=== PATIENT | female | born 1970 | race Caucasian/White ===

== ENCOUNTER 2023-08-06 17:49 | Emergency (ER) | payer BC ==
[~2023-08-06] VITALS: Ht 149.9 cm; Wt 43.2 kg
[2023-08-06] MEDS ORDERED: NS 1,000 ML IV ONE (18:00)
[2023-08-06] MEDS ORDERED: Acetaminophen 500 MG TAB PO ONE (18:00)
[2023-08-06] MEDS ORDERED: Morphine 4 MG/ML VIAL IV ONE (18:15)
[2023-08-06 19:16] LABS: BASO % 0.3 % (0.0-2.0); EOS # 0.2 K/mm3 (0.0-0.7); EOS % 2.1 % (0.0-4.0); GRAN # 3.7 K/mm3 (1.4-6.5); GRAN % 52.1 % (42.2-75.2); LYMPH # 2.6 K/mm3 (1.2-3.4); LYMPH % 36.3 % (20.0-51.0); MEAN CELL VOLUME 94 fl (80.0-100.0); MEAN CORPUSCULAR HEMOGLOBIN 31 pg (27-31); MEAN CORPUSCULAR HGB CONC 33 g/dl (33.0-37.0); MEAN PLATELET VOLUME 8.4 fl (7.4-10.4); MONO # 0.7 K/mm3 (0.1-0.6); MONO % 9.1 % (1.7-9.3); PLATELET COUNT 318 K/mm3 (130-400); RED BLOOD COUNT 3.89 M/mm3 (4.10-5.30); REDCELL DISTRIBUTION WIDTH-CV 12.3 % (11.5-14.5)
[2023-08-06 19:21] LABS: HEMATOCRIT 36.6 % (37.0-47.0)
[2023-08-06] MEDS ORDERED: diphenhydrAMINE 50 MG/ML 1 ML VIAL IV ONE (19:30)
[2023-08-06] MEDS ORDERED: NS 100 ML IV SCH (19:44)
[2023-08-06] MEDS ORDERED: Iohexol 300 - 100 ML VIAL IV ONE (19:44)
[2023-08-06 19:53] LABS: ALANINE AMINOTRANSFERASE 9 U/L (0-55); ALBUMIN 3.6 g/dL (3.5-5.0); ALKALINE PHOSPHATASE 78 U/L (40-150); ANION GAP 10 mmol/L (7-16); AST,SGOT 19 U/L (5-34); BILIRUBIN,TOTAL 0.2 mg/dL (0.2-1.2); BLOOD UREA NITROGEN 7 mg/dL (10-20); CALCIUM 9.2 mg/dL (8.4-10.2); CHLORIDE 107 mEq/L (98-107); CREATININE, serum 0.68 mg/dL (0.57-1.11); GLUCOSE 91 mg/dL (70-99); POTASSIUM 4.4 mEq/L (3.5-4.5); SODIUM 141 mEq/L (136-145); TOTAL PROTEIN 6.5 g/dl (6.2-8.1)
[2023-08-06 19:58] LABS: TROPONIN-I < 0.010 ng/mL (0.00-0.033)
[2023-08-06] MEDS ORDERED: dexAMETHasone 10 MG/ML VIAL IV ONE (20:45)
[2023-08-06] MEDS ORDERED: Albuterol/Ipratropium 3 MG-0.5 MG/3 ML Neb Soln IH ONE (20:45)
[2023-08-06] MEDS ORDERED: AMOXICILLIN 8751 TAB PO (21:14)
[2023-08-06] MEDS ORDERED: PREDNISONE20 MG PO (21:14)
[2023-08-06] MEDS ORDERED: cefTRIAXone 1 G in Water For Injection,Sterile 10 ML IV ONE (21:15)
[2023-08-06 21:34] VITALS: BP 138/78; PULSE 81; TEMP 97.6
== END 2023-08-06 21:55 | disposition home or self-care (01) ==
LOC: COL.ER 17:49
PROVIDERS: Physician Assistant
DX: R07.81 Pleurodynia (principal); J44.9 Chronic obstructive pulmonary disease, unspecified; Z87.891 Personal history of nicotine dependence
CPT/HCPCS: J0696; J1100; J1200; J2270; J7030; Q9967